=== PATIENT | female | born 1995 | race Two or more races ===

== ENCOUNTER 2024-06-10 13:04 | Emergency (ER) | payer SELFPAY ==
[~2024-06-10] VITALS: Ht 165.1 cm; Wt 90.1 kg
--- NOTE | 2024-06-10 14:12 | ED.PDOC ---
GI ASSESSMENT HPI Comments 39-year-old female brought in by family complaining of abdominal cramping, nausea and vomiting for the past 4 days. Patient reports similar previous symptoms during her menstrual cycle, which she is currently on. She reports upper abdominal pressure-like pain, associated with sweats and diarrhea. She denies any fever or dysuria. She states the current symptoms are more severe than the normal episodes she often has with menses. Chief Complaint: Abdominal Pain Time Seen by MD: 13:55 Primary Care Provider: none Reviewed Notes: Nurses Notes, Medications, Allergies Allergies: Coded Allergies: NO KNOWN ALLERGIES (Unverified , 06/10/24) Information Source: Patient Mode of Arrival: Ambulatory Timing: Days Duration: Since onset Prehospital treatment: None Quality: None Vomitus: Watery Stool: Watery Severity: Moderate Recent: None Recent Hx of: None Pain Location: Epigastric Modifying Factors: Nothing Associated sign and symptoms: Nausea, Vomiting, Diarrhea Past Medical History PAST MEDICAL HISTORY: Anemia Surgical History: Denies all surgeries 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 Family History Family History: Reviewed,noncontributory to illness Social History Smoker: Non-Smoker Alcohol: Denies ETOH Use Drugs: Denies Drug Use Lives In: Home Constitutional: reports: sweats; denies: chills, diaphoresis, fatigue, fever, malaise, weakness, others EENTM: denies: blurred vision, double vision, ear bleeding, ear discharge, ear drainage, ear pain, ear ringing, eye pain, eye redness, hearing loss, mouth pain, mouth swelling, nasal discharge, nose bleeding, nose congestion, nose pain, photophobia, tearing, throat pain, throat swelling, voice changes, others Respiratory: denies: cough, hemoptysis, orthopnea, SOB at rest, shortness of breath, SOB with excertion, stridor, wheezing, others Cardiovascular: denies: chest pain, dizzy spells, diaphoresis, Dyspnea on exertion, edema, irregular heart beat, left arm pain, lightheadedness, palpitations, PND, syncope, others Gastrointestinal: reports: abdominal pain, diarrhea, nausea, vomiting; denies: abdomen distended, blood streaked bowels, constipated, dysphagia, difficulty swallowing, hematemesis, melena, poor appetite, poor fluid intake, rectal bleeding, rectal pain, others Genitourinary: denies: abnormal vagina bleeding, burning, dyspareunia, dysuria, flank pain, frequency, hematuria, incontinence, pain, , vagina discharge, urgency, others Neurological: denies: dizziness, fainting, headache, left sided numbness, left sided weakness, numbness, paresthesia, pre-existing deficit, right sided numbness, right sided weakness, seizure, speech problems, tingling, tremors, weakness, others Musculoskeletal: denies: back pain, gout, joint pain, joint swelling, muscle pain, muscle stiffness, neck pain, others Integumetry: denies: bruises, change in color, change in hair/nails, dryness, laceration, lesions, lumps, rash, wounds, others Allergic/Immunocompromised: denies: Difficulty Healing, Frequent Infections, Hives, Itching, others Hematologic/Lymphatic: denies: anemia, blood clots, easy bleeding, easy bruising, swollen glands, others Endocrine: denies: excessive hunger, excessive sweating, excessive thirst, excessive urination, flushing, intolerance to cold, intolerance to heat, unexplained weight gain, unexplained weight loss, others Psychiatric: denies: anxiety, bipolar disorder, depression, hopeless, panic disorder, schizophrenia, sleepless, suicidal, others All Other Systems: Reviewed and Negative (Comprehensive systems review obtained and negative except for what is stated in the HPI.) Physical Exam General Appearance: Mild Distress HEENT: Other (Dry mucous membranes. Pupils and face symmetric.) Neck: Full Range of Motion, Normal Inspection Respiratory: Lungs Clear, No Accessory Muscle Use, No Respiratory Distress, Normal Breath Sounds Cardiovascular: No Edema, No JVD, Regular Rate/Rhythm Breast Exam: Deferred Gastrointestinal: Soft, Tenderness (Mid abdominal tenderness to palpation. No rebound or guarding.) Genitalia: Deferred Pelvic: Deferred Rectal: Deferred Extremities: Normal inspection, Normal range of motion, Non-tender, No pedal edema Neurologic: Alert (Oriented x4), Normal Affect, Normal Mood, Other (Ambulatory without difficulty. No gross focal deficit.) Cerebellar Function: NOT DONE Reflexes: NOT DONE Skin: Dry, Normal Color, Warm Lymphatic: NOT DONE Was a procedure done? Was a procedure done?: No GI differential Dx Differential Diagnosis: Appendicitis, Cholecystitis, Diverticular disease, Ectopic , Gastritis/PUD, Gastroenteritis, Inflammatory BD, Pancreatitis, UTI, Dehydration, Diabetes/ DKA, Electrolyte Imbalance, Food Poisoning, , Bacterial, Viral, Hypovolemia, Renal Failure X-Ray, Labs, Meds, VS Vital Signs Date Time Temp Pulse Resp B/P (MAP) Pulse Ox O2 Delivery O2 Flow Rate FiO2 06/10/24 15:12 79 12 145/87 06/10/24 14:47 Room Air* 0 21 06/10/24 14:46 98.5 64 18 110/73 (85) 100 98.5 06/10/24 14:42 64 16 110/73 06/10/24 13:20 97.8 76 20 110/71 (84) 100 Lab Test 06/10/24 14:16 Range/Units White Blood Count 7.5 4.4-10.8 10^3/uL Red Blood Count 5.36 H 4.0-5.20 10^6/uL Hemoglobin 15.0 12.2-16.2 g/dL Hematocrit 44.9 36.0-46.0 % Mean Corpuscular Volume 83.8 80.0-100.0 fL Mean Corpuscular Hemoglobin 28.0 28.0-32.0 pg Mean Corpuscular Hemoglobin Concent 33.4 32.0-36.0 g/dL Red Cell Distribution Width 16.0 H 11.8-14.3 % Platelet Count 348 140-450 10^3/uL Mean Platelet Volume 8.9 6.9-10.8 fL Neutrophils (%) (Auto) 82.4 H 37.0-80.0 % Lymphocytes (%) (Auto) 12.4 10.0-50.0 % Monocytes (%) (Auto) 5.0 0.0-12.0 % Eosinophils (%) (Auto) 0.0 0.0-7.0 % Basophils (%) (Auto) 0.2 0.0-2.0 % Neutrophils # (Auto) 6.2 1.6-8.6 10 ^3/uL Lymphocytes # (Auto) 0.9 0.4-5.4 10 ^3/uL Monocytes # (Auto) 0.4 0-1.3 10 ^3/uL Eosinophils # (Auto) 0 0-0.8 10 ^3/uL Basophils # (Auto) 0 0-0.2 10 ^3/uL Nucleated Red Blood Cells 0.1 % Sodium Level 135 L 136-145 mmol/L Potassium Level 3.3 L 3.5-5.1 mmol/L Chloride Level 98 98-107 mmol/L Carbon Dioxide Level 25 20-31 mmol/L Anion Gap 12 5-15 Blood Urea Nitrogen 8 L 9-23 mg/dL Creatinine 0.82 0.550-1.02 mg/dL Glomerular Filtration Rate Calc 99 >90 mL/min BUN/Creatinine Ratio 9.8 L 10.0-20.0 Serum Glucose 111 H 74-106 mg/dL Calcium Level 10.0 8.7-10.4 mg/dL Total Bilirubin 0.8 0.2-1.0 mg/dL Aspartate Amino Transferase (AST) 11 L 13-40 U/L Alanine Aminotransferase (ALT) 14 7-40 U/L Alkaline Phosphatase 57 46-116 U/L Total Protein 7.8 5.7-8.2 g/dL Albumin 4.9 H 3.2-4.8 g/dL Lipase 33 12-53 U/L Beta HCG, Quantitative 0.0 L 1.5-4.2 mIU/mL Current Medications Medications (Trade) Dose Ordered Sig/Jose Route Start Time Stop Time Status Last Admin Sodium Chloride 2,000 ml @ 1,000 mls/hr Q2H ONCE IV 06/10/24 13:45 06/10/24 15:44 DC 06/10/24 14:41 Morphine Sulfate 4 mg ONCE ONCE IV 06/10/24 13:45 06/10/24 13:46 DC 06/10/24 14:42 Ondansetron HCl (Zofran) 4 mg ONCE ONCE IV 06/10/24 13:45 06/10/24 13:46 DC 06/10/24 14:42 Pantoprazole Sodium (Protonix) 40 mg ONCE ONCE IV 06/10/24 13:45 06/10/24 13:46 DC 06/10/24 14:41 X-Ray, Labs, Meds, VS Comment 29-year-old female with a history of anemia and previous bouts of abdominal cramping, nausea and vomiting with menses complaining of abdominal pain, nausea and vomiting for the past 4 days. Vitals unremarkable Exam remarkable for mid abdominal tenderness to palpation and dry mucous membranes Rhythm strip independently interpreted by me: Sinus rhythm, rate 76, no ectopy. CT abdomen and pelvis Impression: 1. Limited evaluation given noncontrast technique. 2. No definite acute abdominopelvic abnormalities. CBC unremarkable, metabolic panel remarkable for sodium 135, potassium 3.3, hCG negative, lipase normal, UA pending Patient treated with the following in the ED: 1 L 0.9 normal saline IV bolus, morphine 4 mg IV, Zofran 4 mg IV, Protonix 40 mg IV, effervescent potassium 50 mEq p.o. On re-evaluation, patient states symptoms have improved, vitals were stable, repeat abdominal exam was benign. Patient tolerated p.o. fluids. Hospitalization was considered, however patient had rapid improvement of symptoms with treatment in the ED, and I no longer feel hospitalization is necessary. Patient now appears stable for discharge with close outpatient follow-up with her primary physician. Patient did not provide a urine sample, so I will provide a prescription for oral antibiotics, as well as antiemetics and pain medicine. Rx Keflex, Zofran, ibuprofen, Bentyl Time of 1ST Reevaluation: 14:25 Reevaluation 1ST: Unchanged Time of 2ND Reevaluation: 16:54 Reevaluation 2ND: Improved Patient Education/Counseling: Diagnosis, Treatment Family Education/Counseling: No Family Present Departure 1 Departure Time of Disposition: 16:54 Impression: Primary Impression: Abdominal pain Qualified Codes: R10.9 - Unspecified abdominal pain Additional Impressions: Nausea and vomiting Qualified Codes: R11.2 - Nausea with vomiting, unspecified Electrolyte imbalance Disposition: 01 HOME / SELF CARE / HOMELESS Condition: Stable Additional Instructions: Your blood tests showed low sodium and potassium which is likely due to vomiting. We have replaced these in the ER. The rest of your blood tests were unremarkable. We were unable to test your urine since no sample was provided. Your CT scan was normal. I have prescribed pain medication, medication for nausea, and antibiotics to cover for a possible urinary tract infection since we were unable to check your urine. Follow-up with your primary doctor in 1-2 days. Return to ER for persistent or worsening symptoms. e-Prescriptions Ibuprofen Micronized (Ibuprofen) 800 Mg Tab 800 MG PO Q8HP PRN, #30 TAB prn pain, take with food Prov: ABIGAIL MACIAS MD 06/10/24 Dicyclomine Hcl (BENTYL CAPSULE) 10 Mg Cp 2 CAP PO Q6HP PRN, #30 CAP 11 Refills prn abdominal pain/cramping Prov: ABIGAIL MACIAS MD 06/10/24 Ondansetron Odt 4MG Tab (ZOFRAN PO) 4 Mg Tb 4 MG PO TID PRN, #30 TAB prn nausea/vomiting ODT TAB-DISSOLVE IN MOUTH, THEN SWALLOW Prov: ABIGAIL MACIAS MD 06/10/24 Cephalexin Monohydrate (Cephalexin) 500 Mg Cap 1 CAP PO QID for 10 Days, #40 CAP Prov: ABIGAIL MACIAS MD 06/10/24 Discharged With: Relative Critical Care Note Critical Care Time?: No Stability Stability form required: No Heart Score Heart Score: Heart Score Response (Comments) Value History N/A 0 EKG N/A 0 Age N/A 0 Risk Factors N/A 0 Troponin N/A 0 Total 0 I personally scribed for ABIGAIL MACIAS MD ([email or web address]) on 06/10/24 at 14:12. Electronically submitted by Opal Soto ([email or web address]). ABIGAIL MACIAS MD Jun 10, 2024 14:12
[2024-06-10] MEDS: PANTOPRAZOLE 40 MG/10 ML VIAL INJ IV ONE (14:41)
[2024-06-10] MEDS: SODIUM CHLORIDE 0.9% 2,000 ML IV ONE (14:41)
[2024-06-10] MEDS: MORPHINE SULFATE 4 MG/ML SYR/VIAL IV ONE (14:42)
[2024-06-10] MEDS: ONDANSETRON HCL 4 MG/2 ML VIAL IV ONE (14:42)
[2024-06-10 14:46] VITALS: TEMP 98.5; O2SAT 100
[2024-06-10 15:02] LABS: Basophils # (auto) 0 10 ^3/uL (0-0.2); Basophils % (auto) 0.2 % (0.0-2.0); Eosinophils # (auto) 0 10 ^3/uL (0-0.8); Hematocrit 44.9 % (36.0-46.0); Lymphocytes # (auto) 0.9 10 ^3/uL (0.4-5.4); Lymphocytes % (auto) 12.4 % (10.0-50.0); Mean Corpuscular Hgb Conc. 33.4 g/dL (32.0-36.0); Mean Corpuscular Volume 83.8 fL (80.0-100.0); Monocytes # (auto) 0.4 10 ^3/uL (0-1.3); Neutrophils # (auto) 6.2 10 ^3/uL (1.6-8.6); Neutrophils % (auto) 82.4 % (37.0-80.0); Nucleated Red Blood Cells % 0.1 %; Platelet Count (auto) 348 10^3/uL (140-450); Red Blood Cells 5.36 10^6/uL (4.0-5.20); White Blood Cell 7.5 10^3/uL (4.4-10.8)
[2024-06-10 15:12] VITALS: BP 145/87; PULSE 79; RESP 12
[2024-06-10 15:26] LABS: Alanine Aminotransferase 14 U/L (7-40); Alkaline Phosphatase 57 U/L (46-116); Anion Gap 12 (5-15); BUN/Creatinine Ratio 9.8 (10.0-20.0); Bilirubin, Total 0.8 mg/dL (0.2-1.0); Carbon Dioxide 25 mmol/L (20-31); Chloride 98 mmol/L (98-107); Lipase 33 U/L (12-53)
[2024-06-10 15:27] LABS: Total Protein 7.8 g/dL (5.7-8.2)
[2024-06-10 15:40] LABS: Albumin 4.9 g/dL (3.2-4.8); Aspartate Aminotransferase 11 U/L (13-40); Blood Urea Nitrogen 8 mg/dL (9-23); Glucose 111 mg/dL (74-106); Potassium 3.3 mmol/L (3.5-5.1); Sodium 135 mmol/L (136-145)
--- NOTE | 2024-06-10 16:12 | DVH ---
Exam: CT CT AB PEL WO CON-NO ORAL OR IV History: ap n/v/d Comparison Study: None TECHNIQUE: Multidetector CT of the abdomen and pelvis was performed from lung bases to pubic symphysi s. Imaging was performed without IV contrast. Axial, coronal, and sagittal multiplanar reformats were obtained from the axial data set by the technologist. RADIATION DOSE: DLP 707.21 mGy.cm; CTDI vol 13.93 mGy. Findings: Limited evaluation given noncontrast technique. Lungs: The lung bases are clear. Heart: No cardiomegaly or pericardial effusion. Liver: Unremarkable. Gallbladder: Unremarkable. Spleen: Unremarkable Pancreas: Unremarkable Adrenals: Unremarkable Kidneys: Unremarkable GI tract: Unremarkable : Unremarkable. Vasculature: Unremarkable Lymphadenopathy: Absent Peritoneum: No ascites Musculoskeletal: Unremarkable Soft tissues: Unremarkable Impression: 1. Limited evaluation given noncontrast technique. 2. No definite acute abdominopelvic abnormalities.
[2024-06-10] MEDS: POTASSIUM EFFERVESENT TAB 25 MEQ PO ONE (17:06)
[2024-06-10] MEDS ORDERED: CEPH500C PO (17:09)
[2024-06-10] MEDS ORDERED: IBUP-1455 PO (17:09)
[2024-06-10] MEDS ORDERED: DICY10CA PO (17:09)
[2024-06-10] MEDS ORDERED: ZOFR4T PO (17:09)
== END 2024-06-10 17:23 | disposition home or self-care (01) ==
LOC: ER 13:04
DX: R10.84 Generalized abdominal pain (principal); R11.2 Nausea with vomiting, unspecified; E87.8 Other disorders of electrolyte and fluid balance, not elsewhere classified; R10.2 Pelvic and perineal pain
CPT/HCPCS: 36415; 74176; 80053; 83690; 84702; 85025; 96361; 96374; 96375; 99285; J2270; J2405; J2470; J7030

== ENCOUNTER 2024-06-13 09:44 | Emergency (ER) | payer MEDICAID ==
[~2024-06-13] VITALS: Ht 165.1 cm; Wt 90.0 kg
[~2024-06-13 09:44] MED LIST: CEPH500C PO; DICY10CA PO; IBUP-1455 PO; ZOFR4T PO
--- NOTE | 2024-06-13 10:17 | ED.PDOC ---
History of Present Illness HPI Comments 29-year-old female came to the ER stating that she has been having nausea vomiting for the past six days. She was seen in the ER for similar symptom on the . She was given antibiotics sent home. She states that she never got better and continues to have nausea vomiting since she has been in this ER. She does use marijuana on a daily basis. Denies any past medical surgical history. Chief Complaint: Nausea/Vomiting Time Seen by MD: 10:13 Primary Care Provider: none Reviewed Notes: Nurses Notes, Medications, Allergies Allergies: Coded Allergies: NO KNOWN ALLERGIES (Unverified , 06/10/24) Home Meds Active Scripts Ibuprofen Micronized (Ibuprofen) 800 Mg Tab, 800 MG PO Q8HP PRN, #30 TAB prn pain, take with food Prov:ABIGAIL MACIAS MD 06/10/24 Dicyclomine Hcl (BENTYL CAPSULE) 10 Mg Cp, 2 CAP PO Q6HP PRN, #30 CAP 11 Refills prn abdominal pain/cramping Prov:ABIGAIL MACIAS MD 06/10/24 Ondansetron Odt 4MG Tab (ZOFRAN PO) 4 Mg Tb, 4 MG PO TID PRN, #30 TAB prn nausea/vomiting ODT TAB-DISSOLVE IN MOUTH, THEN SWALLOW Prov:ABIGAIL MACIAS MD 06/10/24 Cephalexin Monohydrate (Cephalexin) 500 Mg Cap, 1 CAP PO QID for 10 Days, #40 CAP Prov:ABIGAIL MACIAS MD 06/10/24 Information Source: Patient Mode of Arrival: Ambulatory Severity: Moderate Timing: Days Duration: Since onset Past Medical History PAST MEDICAL HISTORY: Anemia Surgical History: Denies all surgeries 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 Family History Family History: Reviewed,noncontributory to illness Social History Smoker: Non-Smoker Alcohol: Denies ETOH Use Drugs: Marijuana Lives In: Home Constitutional: denies: chills, diaphoresis, fatigue, fever, malaise, sweats, weakness, others EENTM: denies: blurred vision, double vision, ear bleeding, ear discharge, ear drainage, ear pain, ear ringing, eye pain, eye redness, hearing loss, mouth pain, mouth swelling, nasal discharge, nose bleeding, nose congestion, nose pain, photophobia, tearing, throat pain, throat swelling, voice changes, others Respiratory: denies: cough, hemoptysis, orthopnea, SOB at rest, shortness of breath, SOB with excertion, stridor, wheezing, others Cardiovascular: denies: chest pain, dizzy spells, diaphoresis, Dyspnea on exertion, edema, irregular heart beat, left arm pain, lightheadedness, palpitations, PND, syncope, others Gastrointestinal: reports: nausea, vomiting; denies: abdomen distended, abdominal pain, blood streaked bowels, constipated, diarrhea, dysphagia, difficulty swallowing, hematemesis, melena, poor appetite, poor fluid intake, rectal bleeding, rectal pain, others Genitourinary: denies: abnormal vagina bleeding, burning, dyspareunia, dysuria, flank pain, frequency, hematuria, incontinence, pain, , vagina discharge, urgency, others Neurological: denies: dizziness, fainting, headache, left sided numbness, left sided weakness, numbness, paresthesia, pre-existing deficit, right sided numbness, right sided weakness, seizure, speech problems, tingling, tremors, weakness, others Musculoskeletal: denies: back pain, gout, joint pain, joint swelling, muscle pain, muscle stiffness, neck pain, others Integumetry: denies: bruises, change in color, change in hair/nails, dryness, laceration, lesions, lumps, rash, wounds, others Allergic/Immunocompromised: denies: Difficulty Healing, Frequent Infections, Hives, Itching, others Hematologic/Lymphatic: denies: anemia, blood clots, easy bleeding, easy bruising, swollen glands, others Endocrine: denies: excessive hunger, excessive sweating, excessive thirst, excessive urination, flushing, intolerance to cold, intolerance to heat, unexplained weight gain, unexplained weight loss, others Psychiatric: denies: anxiety, bipolar disorder, depression, hopeless, panic disorder, schizophrenia, sleepless, suicidal, others Physical Exam General Appearance: Moderate Distress HEENT: Normal ENT Inspection, Pharynx Normal, TMs Normal Neck: Full Range of Motion, Non-Tender, Normal, Normal Inspection Respiratory: Chest Non-Tender, Lungs Clear, No Accessory Muscle Use, No Respiratory Distress, Normal Breath Sounds Cardiovascular: No Edema, No JVD, No Murmur, No Gallop, Normal Peripheral Pulses, Regular Rate/Rhythm Breast Exam: Deferred Gastrointestinal: No Organomegaly, Non Tender, No Pulsatile Mass, Normal Bowel Sounds, Soft Genitalia: Deferred Pelvic: Deferred Rectal: Deferred Extremities: No calf tenderness, Normal capillary refill, Normal inspection, Normal range of motion, Non-tender, No pedal edema Musculoskeletal : Apperance: Normal Neurologic: Alert, insurance risk manager II-XII nml as Tested, No Motor Deficits, Normal Affect, Normal Mood, No Sensory Deficits Cerebellar Function: Normal Reflexes: Normal Skin: Dry, Normal Color, Warm Peripheral Pulses: 3+ Radial (R), 3+ Radial (L) Lymphatic: No Adenopathy Was a procedure done? Was a procedure done?: No Differential Dx Considerations may include: Marijuana induced Gastroenteritis X-Ray, Labs, Meds, VS Vital Signs Date Time Temp Pulse Resp B/P (MAP) Pulse Ox O2 Delivery O2 Flow Rate FiO2 06/13/24 10:08 98.1 85 20 125/80 (95) 99 Patient alert. Complaining of nausea vomiting. Vitals stable. Answering all questions. Establish intravenous access. Was given fluids. Was given Zofran. Explained to the patient marijuana induced. Was told to follow up with her primary care physician. Was told to come back if there is any problem. Time of 1ST Reevaluation: 10:15 Reevaluation 1ST: Unchanged Patient Education/Counseling: Diagnosis, Treatment, Prognosis Family Education/Counseling: No Family Present Departure 1 Departure Time of Disposition: 10:16 Impression: Primary Impression: Nausea and vomiting Qualified Codes: R11.2 - Nausea with vomiting, unspecified Disposition: HOME / SELF CARE / HOMELESS Condition: Good Discharged With: Self Critical Care Note Critical Care Time?: No Stability Stability form required: No Heart Score Heart Score: Heart Score Response (Comments) Value History N/A 0 EKG N/A 0 Age N/A 0 Risk Factors N/A 0 Troponin N/A 0 Total 0 TESSY LING MD Jun 13, 2024 10:17
[2024-06-13 10:52] LABS: Basophils # (auto) 0 10 ^3/uL (0-0.2); Basophils % (auto) 0.5 % (0.0-2.0); Eosinophils # (auto) 0 10 ^3/uL (0-0.8); Eosinophils % (auto) 0.3 % (0.0-7.0); Hematocrit 42.3 % (36.0-46.0); Hemoglobin 14.2 g/dL (12.2-16.2); Lymphocytes % (auto) 18.1 % (10.0-50.0); Mean Corpuscular Hemoglobin 28.1 pg (28.0-32.0); Mean Corpuscular Hgb Conc. 33.7 g/dL (32.0-36.0); Mean Corpuscular Volume 83.6 fL (80.0-100.0); Monocytes # (auto) 0.4 10 ^3/uL (0-1.3); Monocytes % (auto) 6.9 % (0.0-12.0); Neutrophils # (auto) 4.3 10 ^3/uL (1.6-8.6); Neutrophils % (auto) 74.2 % (37.0-80.0); Nucleated Red Blood Cells % 0.1 %; Platelet Count (auto) 316 10^3/uL (140-450); Red Blood Cells 5.06 10^6/uL (4.0-5.20); Red Cell Distribution Width 16.2 % (11.8-14.3); White Blood Cell 5.8 10^3/uL (4.4-10.8)
[2024-06-13 10:59] LABS: Urine Bacteria None Seen /hpf (None Seen)
[2024-06-13] MEDS: ONDANSETRON HCL 4 MG/2 ML VIAL IV ONE (11:04)
[2024-06-13] MEDS: SODIUM CHLORIDE 0.9% 1,000 ML IV ONE (11:13)
[2024-06-13 11:17] LABS: Urine Blood Negative /uL (Negative); Urine Clarity Clear (Clear); Urine Color Light-Yellow (Yellow); Urine Mucus FEW (None Seen); Urine Protein, UAD Negative (Negative); Urine Specific Gravity 1.009 (1.001-1.035); Urine Squamous Epithelial Cell FEW /hpf (<5); Urine Urobilinogen 3 mg/dL (Negative); Urine WBC 3 /HPF (0-5); Urine pH 7.5 (5.0-9.0)
[2024-06-13 11:35] LABS: Anion Gap 11 (5-15); Calcium 10.1 mg/dL (8.7-10.4); Carbon Dioxide 25 mmol/L (20-31)
[2024-06-13 11:37] LABS: Chloride 98 mmol/L (98-107); Potassium 3.2 mmol/L (3.5-5.1); Sodium 134 mmol/L (136-145)
[2024-06-13 11:40] LABS: Amphetamine Screen, Urine Neg (NEGATIVE); Benzodiazephine Screen, Urine Neg (NEGATIVE)
[2024-06-13 11:40] LABS: BUN/Creatinine Ratio 5.6 (10.0-20.0); Blood Urea Nitrogen < 5 mg/dL (9-23); Glucose 125 mg/dL (74-106)
[2024-06-13 11:41] LABS: Barbiturate Scree,Urine Neg (NEGATIVE); Cannabinoid Screen, Urine Pos (NEGATIVE); Cocaine Screen, Urine Neg (NEGATIVE); Opiate Scree,Urine Neg (NEGATIVE); Phencyclidine Screen, Urine Neg (NEGATIVE)
[2024-06-13] MEDS: POTASSIUM EFFERVESENT TAB 25 MEQ PO ONE (12:27)
[2024-06-13] MEDS: PANTOPRAZOLE 40 MG/10 ML VIAL INJ IV ONE (12:32)
[2024-06-13 13:23] VITALS: BP 126/87; PULSE 67; RESP 17; TEMP 98.4; O2SAT 100
== END 2024-06-13 13:26 | disposition home or self-care (01) ==
LOC: ER 09:44
DX: R11.2 Nausea with vomiting, unspecified (principal); F12.10 Cannabis abuse, uncomplicated; Z79.899 Other long term (current) drug therapy
CPT/HCPCS: 36415; 80048; 80307; 81001; 85025; 96361; 96374; 96375; 99284; J2405; J2470; J7030